=== PATIENT | female | born 1995 | race Caucasian/White ===

== ENCOUNTER 2017-07-21 16:21 | Outpatient (CLI) | payer OTHER ==
[~2017-07-21] VITALS: Ht 162.6 cm; Wt 72.6 kg
[~2017-07-21 16:21] MED LIST: ACET1TAB43 PO; DOCU100C37 PO; FERR325T18 PO; IBUP-1773 PO
[2017-07-21 16:37] VITALS: BP 116/71
[2017-07-21] MEDS ORDERED: PREN-148 PO (17:31)
[2017-07-21] MEDS ORDERED: FERR-84 PO (17:32)
--- NOTE | 2017-07-23 12:18 | Physician Query-Final Dx ---
NEVAEH CROUCH 07/23/17 1218: Clinic Account Progress/Dx Physician Query: Please give diagnosis Date of Service July 21, 2017 at 16:21 KWAME MIMS DO 07/24/17 1317: Clinic Account Progress/Dx DIAGNOSIS: Diagnosis 34 week IUP Cramping and bloating NEVAEH CROUCH July 23, 2017 12:18 KWAME MIMS DO July 24, 2017 13:17
== END 2017-07-21 17:38 | disposition home or self-care (01) ==
LOC: WSo 16:21 → LDRP 16:23 → WSo 17:38
PROVIDERS: ATTEND Obstetrics & Gynecology
DX: O99.89 Other specified diseases and conditions complicating pregnancy, childbirth and the puerperium (principal); R14.0 Abdominal distension (gaseous); Z3A.34 34 weeks gestation of pregnancy
CPT/HCPCS: 99213

== ENCOUNTER 2017-08-25 07:52 | Inpatient (IN) | payer OTHER ==
[~2017-08-25] VITALS: Ht 162.6 cm; Wt 74.0 kg
[2017-08-25] VITALS (35 sets, daily range): BP systolic 99–151; BP diastolic 57–87
[~2017-08-25 07:52] MED LIST changes: +FERR-84 PO; +PREN-148 PO
[2017-08-25] MEDS ORDERED: D5 LR IV SOLUTION 1,000 ML IV SCH (08:36)
[2017-08-25] MEDS ORDERED: OXYTOCIN/NORMAL SALINE 500 ML IV SCH ×2 (08:36→13:39)
[2017-08-25] MEDS ORDERED: MINERAL OIL CONCENTRATE 99.9% 15 ML UDC TOP PRN (08:45)
[2017-08-25] MEDS ORDERED: OXYTOCIN/NORMAL SALINE 500 ML IV ONE (09:06)
[2017-08-25] MEDS ORDERED: D5 LR IV SOLUTION 1,000 ML IV ONE (09:06)
[2017-08-25 09:41] LABS: BASOPHILS % (AUTO) 0 % (0-10); EOSINOPHILS # (AUTO) 0.1 10^3/uL (0.0-0.3); EOSINOPHILS % (AUTO) 1 % (0-10); HEMATOCRIT 32 % (35-52); HEMOGLOBIN 10.6 G/DL (11.5-16.0); LYMPHOCYTES # (AUTO) 1.6 X 10^3 (1.0-4.0); LYMPHOCYTES % (AUTO) 18 % (12-44); MEAN CORPUSCULAR HEMOGLOBIN 28 PG (25-34); MEAN CORPUSCULAR HGB CONC 33 G/DL (32-36); MEAN CORPUSCULAR VOLUME 84 FL (80-99); MONOCYTES # (AUTO) 0.9 X 10^3 (0.0-1.0); MONOCYTES % (AUTO) 11 % (0-12); NEUTROPHILS # (AUTO) 6.2 X 10^3 (1.8-7.8); NEUTROPHILS % (AUTO) 70 % (42-75); PLATELET COUNT 230 10^3/uL (130-400); RED BLOOD COUNT 3.83 10^6/uL (4.35-5.85); RED CELL DISTRIBUTION WIDTH 14.5 % (10.0-14.5); WHITE BLOOD COUNT 8.9 10^3/uL (4.3-11.0)
[2017-08-25] MEDS ORDERED: SUFENTA 0.6MCG/ML BUPIVA 0.125 100 ML ONE (10:07)
--- NOTE | 2017-08-25 10:11 | History & Physical-OB ---
OB - Chief Complaint & HPI Date/Time Date of Admission: Date of Admission: Time Seen by Provider: 10:00 Chief Complaint/History OB-Reason for Admission/Chief: Labor Hx : 2 Hx Para: 1 Expected Date of Delivery: Aug 30, 2017 Gestational Age in Weeks: 39 Gestational Age in Days: 2 Admission Nurse Assessment Rev: Yes History of Labs O neg Antibody neg RI RPR NR HBsAg NR HIV NR GC neg GBS neg Allergies and Home Medications Allergies Coded Allergies: No Known Drug Allergies (Unverified , 07/09/15) Patient Home Medication List Home Medication List Reviewed: Yes OB - History Hx of Present Care: Yes Ultrasounds: Normal mid trimester US Obstetrical Complications: None Medical Complications: None Obstetrical History Hx : 2 Hx Para: 1 Hx Total # of Abortions (Spona: 0 Delivery History Hx Blood Disorders: No Adverse Rxn to Tranfusion: No Patient Past Medical History N/A Social History/Family History Recent Infectious Disease Expo: No Alcohol Use: Denies Use Recreational Drug Use: No Immunizations Hepatitis B: Yes Tetanus Booster (TDap): Unknown OB - Admission Exam Physical Exam HEENT: NCAT Heart: Rhythm Normal Lungs: Clear Abdomen: Gravid Extremities: Normal Reflexes: Normal Cervical Dilatation: 4cm Effacement: 75% Station: -2 Membranes: Ruptured Amniotic Fluid: Clear Heart Rate: 130's Accelerations: Accelerations Present Decelerations: No Decelerations Short Term Variability: Present Trolley Worker Variability: Average (6-25) Contractions on Admission: 6-10 Minutes Apart Intensity: Mild Labs Laboratory Tests Test 08/25/17 09:20 Range/Units White Blood Count 8.9 4.3-11.0 10^3/uL Red Blood Count 3.83 L 4.35-5.85 10^6/uL Hemoglobin 10.6 L 11.5-16.0 G/DL Hematocrit 32 L 35-52 % Mean Corpuscular Volume 84 80-99 FL Mean Corpuscular Hemoglobin 28 25-34 PG Mean Corpuscular Hemoglobin Concent 33 32-36 G/DL Red Cell Distribution Width 14.5 10.0-14.5 % Platelet Count 230 130-400 10^3/uL Mean Platelet Volume 11.0 H 7.4-10.4 FL Neutrophils (%) (Auto) 70 42-75 % Lymphocytes (%) (Auto) 18 12-44 % Monocytes (%) (Auto) 11 0-12 % Eosinophils (%) (Auto) 1 0-10 % Basophils (%) (Auto) 0 0-10 % Neutrophils # (Auto) 6.2 1.8-7.8 X 10^3 Lymphocytes # (Auto) 1.6 1.0-4.0 X 10^3 Monocytes # (Auto) 0.9 0.0-1.0 X 10^3 Eosinophils # (Auto) 0.1 0.0-0.3 10^3/uL Basophils # (Auto) 0.0 0.0-0.1 10^3/uL OB - Assessment/Plan/Diagnosis Assessment Assessment: rupture of membranes Admission Dx 22 yo @ 39.2 SROM GBS neg Admission Status: Inpatient Order (span 2 midnights) Reason for Inpatient Admission: 22 yo @ 39.2 SROM GBS neg Plan Plan: Expectant Management (Pitocin augmentation to be started if no increase in contraction pattern or cervical change noted) Other Plan May have epidural at request KWAME MIMS DO Aug 25, 2017 10:11 am
[2017-08-25] MEDS ORDERED: fentaNYL INJECTION 100 MCG/2 ML AMP ONE (10:36)
[2017-08-25] MEDS ORDERED: BUPIVACAINE 0.25% 30 ML (SENSORCAINE) VIAL ONE (10:36)
[2017-08-25] MEDS ORDERED: LACTATED RINGERS 1,000 ML IV ONE ×2 (11:10)
[2017-08-25] MEDS ORDERED: NALOXONE 0.4 MG/ML 1 ML (NARCAN) VIAL IV PRN (11:15)
[2017-08-25] MEDS ORDERED: ONDANSETRON 4 MG/2 ML (SDV) Z0FRAN IV PRN (11:15)
[2017-08-25] MEDS ORDERED: EPIDURAL (SUFENTA 0.6MCG/ML BUPIVA 0.125%) 100 ML BAG EPI PRN (11:15)
--- OUTSIDE RECORDS SUMMARY | 2017-08-25 11:49 | XMS REPORT ---
Author TOSHA [facility] eClinicalWorks Address Unknown Phone Unavailable Care Team Providers Care Adobe Developer Name Role Phone TOSHA PARISH CP Unavailable Allergies No Known Allergies Problems Problem Type Condition ICD-9 Code Onset Dates Condition Status Problem General counseling for prescription of oral contraceptives V25.01 Active Assessment examination or test, unconfirmed V72.40 Active Problem examination or test, negative result V72.41 Active Medications No Known Medications Procedures Procedure Coding System Code Date VENIPUNCT, ROUTINE* CPT-4 90686 Nov 25, 2014 CHORIONIC GONADOTROPIN ASSAY CPT-4 71047 Nov 25, 2014 Results No Known Results Summary Purpose eClinicalWorks Submission
--- OUTSIDE RECORDS SUMMARY | 2017-08-25 11:49 | XMS REPORT ---
Author TOSHA Irving [facility] [place] eClinicalWorks Address Unknown Phone Unavailable Care Team Providers Care Donkey Engine Firer/Fireman Name Role Phone TOSHA PARISH CP Unavailable Allergies No Known Allergies Problems Problem Type Condition ICD-9 Code Onset Dates Condition Status Problem General counseling for prescription of oral contraceptives V25.01 Active Problem examination or test, negative result V72.41 Active Medications No Known Medications Results No Known Results Summary Purpose eClinicalWorks Submission
--- OUTSIDE RECORDS SUMMARY | 2017-08-25 11:50 | XMS REPORT ---
Author Author GIOVANNI CARVALHO eClinicalWorks Address Unknown Phone Unavailable Care Team Providers Care Head Silverman Name Role Phone GIOVANNI CARVALHO CP Unavailable Allergies, Adverse Reactions, Alerts Substance Reaction Event Type N.K.D.A. Info Not Available Non Drug Allergy Problems Problem Type Condition Code Onset Dates Condition Status Problem General counseling for prescription of oral contraceptives V25.01 Active Assessment Dental examination Z01.20 Active Problem examination or test, negative result V72.41 Active Medications Medication Code System Code Instructions Start Date End Date Status Dosage [facility] [id number] not defined Procedures Procedure Coding System Code Date INTRAORL-PERIAPICAL 1 FILM 32981 CPT-4 D0220 Dec 08, 2015 BITEWING - SINGLE FILM CPT-4 D0270 Dec 08, 2015 INTRAORL-PERIAPICAL 1 FILM 38701 CPT-4 D0220 Dec 08, 2015 Vital Signs Date/Time: Dec 08, 2015 Blood Pressure Diastolic 72 mmHg Blood Pressure Systolic 129 mmHg Height 64 in Results No Known Results Summary Purpose eClinicalWorks Submission
--- OUTSIDE RECORDS SUMMARY | 2017-08-25 11:50 | XMS REPORT | Continuity of Care Document ---
Author Author Formerly [facility] Address Unknown Phone Unavailable Allergies Active Description Code Type Severity Reaction Onset Reported/Identified Relationship to Patient Clinical Status Yes No Known Drug Allergies [id number] Drug Allergy Unknown N/A 07/09/2015 Medications There is no data. 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25 MAJOR DEPRESSIVE AFFECTIVE DISORDER SINGLE EPISODE IN PARTIAL OR UNSPECIFIED REMISSION 07/12/2009 TOSHA PARISH DO V70.3 SPORTS/SCHOOL EXAM 07/12/2009 TOSHA PARISH DO V70.3 SPORTS/SCHOOL EXAM 07/12/2009 DEBORAH OROURKE APRN A V70.3 SPORTS/SCHOOL EXAM 12/01/2009 TOSHA PARISH DO 373.11 HORDEOLUM EXTERNUM 12/01/2009 TOSHA PARISH DO 373.11 HORDEOLUM EXTERNUM 12/01/2009 DEBORAH OROURKE APRN A 373.11 HORDEOLUM EXTERNUM 02/18/2010 PARISH DO, TOSHA K 110.4 TINEA PEDIS 02/18/2010 МАРИНА GARAY, TOSHA K 110.4 TINEA PEDIS 02/18/2010 [employer] ANCHORDEBORAH Pagan A 110.4 TINEA PEDIS 01/16/2011 TOSHA PARISH DO K 110.5 TINEA CORPORIS 01/16/2011 TOSHA PARISH DO K 110.5 TINEA CORPORIS 01/16/2011 DEBORAH OROURKE APRN A 110.5 TINEA CORPORIS 08/22/2013 [employer] ANCHORDEBORAH Pagan V72.41 TEST NEGATIVE RESULT 08/28/2013 TOSHA PARISH DO K V25.01 CONTRACEPTION - ORAL CONTRACEPTION 08/28/2013 DEBORAH OROURKE APRN V25.01 CONTRACEPTION - ORAL CONTRACEPTION 07/11/2015 TONYA ALEX, ALEKSANDER Pagan Ot D62 ACUTE POSTHEMORRHAGIC ANEMIA 07/11/2015 TONYA ALEX, ALEKSANDER N Ot O42.02 FULL-TERM DEBRA ROM, ONSET LABOR WITHIN 2 07/11/2015 TONYA ALEX, ALEKSANDER N Ot O71.82 OTHER SPECIFIED TRAUMA TO PERINEUM AND V 07/11/2015 TONYA ALEX, ALEKSANDER N Ot O90.81 ANEMIA OF THE PUERPERIUM 07/11/2015 TONYA ALEX, ALEKSANDER N Ot Z37.0 SINGLE LIVE 07/11/2015 TONYA ALEX, ALEKSANDER Pagan Ot Z3A.38 38 WEEKS GESTATION OF 07/21/2017 Ot Z34.82 ENCOUNTER FOR SUPRVSN OF NORMAL PREGNANC 07/21/2017 Ot Z3A.21 21 WEEKS GESTATION OF 07/21/2017 KWAME MIMS DO Ot O99.89 OTH DISEASES AND CONDITIONS COMPL PREG/C 07/21/2017 OLEGARIOECH KWAME GARAY S Ot R14.0 ABDOMINAL DISTENSION (GASEOUS) 07/21/2017 KWAME MIMS DO Ot Z3A.34 34 WEEKS GESTATION OF 07/25/2017 KWAME MIMS DO Ot O99.89 OTH DISEASES AND CONDITIONS COMPL PREG/C 07/25/2017 OLEGARIOECH KWAME GARAY S Ot R14.0 ABDOMINAL DISTENSION (GASEOUS) 07/25/2017 KWAME MIMS DO Ot Z3A.34 34 WEEKS GESTATION OF Procedures Code [place] [address] ROUTINE VENIPUNCTURE 08/22/2013 66937 TEST, SERUM (RML) 08/22/2013 [id number] 07/09/2015 [id number] 07/10/2015 [id number] 07/10/2015 Results There is no data. Encounters ACCT No. Visit Date/Time Discharge Status Pt. Type Provider Facility Loc./Unit Complaint [id number] 11/20/2013 15:24:00 11/20/2013 23:59:59 CLS Outpatient DEBORAH OROURKE APRN [id number] 08/28/2013 14:57:00 08/28/2013 23:59:59 CLS Outpatient TOSHA PARISH DO [id number] 08/22/2013 08:28:00 08/22/2013 23:59:59 CLS Outpatient TOSHA PARISH DO [id number] 07/21/2017 16:21:00 07/21/2017 17:38:00 DIS Outpatient KWAME MIMS DO [facility] WSo PRESSURE,CRAMPING [id number] 07/09/2015 21:11:00 07/11/2015 15:15:00 DIS Outpatient ALEKSANDER CASTANEDA MD [facility] LDRP [id number] 04/19/2017 11:58:00 Document Registration
--- NOTE | 2017-08-25 13:39 | OB Labor & Delivery Record ---
L&D History Date of Service Date of Service: Aug 25, 2017 History Expected Date of Delivery: Aug 30, 2017 Gestational Age in Weeks: 39 Hx : 2 Hx Para: 1 Complications Events: Routine care Operative Indications (Cesarea: N/A-Vaginal Delivery Intrapartal Events: None L&D Stage1 Stage One Onset of Labor - Date: Aug 25, 2017 Monitors and Tracing Monitor Mode: External Heart Rate: 140 Monitor Decelerations: Early Station: -2 Short Term Variability: Present Presentation: Vertex Vital Signs VS - Last 72 Hours, by Label 08/25/17 08/25/17 08/25/17 09:30 09:45 10:00 Temp 97.0 98.3 Pulse 64 59 62 Resp 16 B/P (MAP) 115/66 (82) 125/79 (94) 119/69 (86) O2 Delivery Room Air Room Air Room Air Rupture of Membranes Spontaneous Ruture of Membrane: Yes Amniotic Membrane Rupture Time: 0700 Amniotic Membrane Fluid Desc.: Clear Amniotic Fluid Membrane Tests: Nitrazine Positive Vaginal Bleeding Description: Normal Show Induction/Anesthesia Epidural Cath Placement - Time: 1043 Progress/Notes Pitocin augmentation started per protocol(Fenech), at 0930 this AM L&D Stage2 Stage Two Stage II Date: Aug 25, 2017 Monitors and Tracing Monitor Mode: External Heart Rate: 140 Monitor Decelerations: Early Laboratory Scientist Variability: Average (6-10) Short Term Variability: Present Position: Right Occiput Anterior Presentation: Vertex Cord Descript/Complications Cord Vessel Description: 3 Vessels Delivery Type Infant Delivery Method: Spontaneous Vaginal Anterior Shoulder: Right Episiotomy/Perineal Laceration Episiotomy Description: Midline, Vaginal Extension/lac, 1st degree Degree (describe repair) 1st degree vaginal to peroneal laceration repaired using 3-0 rapide vicryl suture Condition of Infant Delivery 1 minute Comment: 8 5 minute Comment: 9 Notes Live male weight 8lbs 14 oz Condition of Condition of Infant: Living Exam: No Observed Abnormalities Resuscitation Resuscitation: N/A - Spontaneous Resp L&D Stage3 Stage Three Stage III Date: Aug 25, 2017 Pictocin Pitocin Administration mu/min: 30 Pitocin Administration Comment: 30 mu wide open at delivery of placenta Placenta Delivery Placenta Delivery: Spontaneous Delivery Summary Summary Estimated blood loss (mL): 350 Attending at delivery: Kwame Mims DO Condition of Delivery Examined: Cervix Examined, Uterus Explored Post Hemorrhage: Yes Condition of Mother stable Condition of (s) stable KWAME MIMS DO Aug 25, 2017 1:39 pm
[2017-08-25] MEDS ORDERED: LIDOCAINE/EPI 2% 1:200,00 (XYLOCAINE) 10 ML VIAL ONE (13:41)
[2017-08-25] MEDS ORDERED: DIBUCAINE (NUPERCAINAL) 1% OINT 30 GM TOP PRN (13:45)
[2017-08-25] MEDS ORDERED: TETANUS,DIPTH,PERTUSS P/F (BOOSTRIX) 0.5 ML VIAL IM ONE (13:45)
[2017-08-25] MEDS ORDERED: HYDROcodone/APAP 5 MG/325 MG (LORTAB) TAB PO PRN (13:45)
[2017-08-25] MEDS ORDERED: MEASLES,MUMPS,RUBELLA 1 EA INJ SQ ONE (13:45)
[2017-08-25] MEDS ORDERED: CATHETER FLUSH 10 ML SYR IV SCH ×2 (14:00)
--- NOTE | 2017-08-25 14:13 | Discharge Inst-Women's Service ---
Discharge Inst-Women's Serv Depart Medication/Instructions New, Converted or Re-Newed RX: RX on Chart Consults/Follow Up Additional Follow Up: Yes Orders/Referrals Dr. Mims in 6 weeks Activity Driving Instructions: No Driving for 1 Week NO SMOKING: NO SMOKING Nothing Inside Vagina: No Douching, No Zephyr, No Tampons Diet Discharge Diet: No Restrictions Symptoms to Report to : Bleeding Excessive, Pain Increased, Fever Over 101 Degrees F, Vaginal Bleeding Increase, Questions/Concerns For Any Problems or Questions: Contact Your Physician Skin/Wound Care Bathing Instructions: Shower ( or sitz baths x 2 weeks) KWAME IMMS DO Aug 25, 2017 2:13 pm
[2017-08-25] MEDS ORDERED: Benzocaine/Menthol TP (14:15)
[2017-08-25] MEDS ORDERED: IBUP-844 PO (14:15)
[2017-08-25] MEDS ORDERED: DIBU30OI TOP (14:15)
[2017-08-25] MEDS ORDERED: ACHD5005 PO (14:15)
[2017-08-25] MEDS ORDERED: DOCU100C37 PO (14:15)
[2017-08-25] MEDS: BENZOCAINE/MENTHOL (DERMOPLAST) 56 ML CAN TP PRN (14:38)
[2017-08-25] MEDS: WITCH HAZEL(TUCKS) 40 EA JAR TOP PRN (14:38)
[2017-08-25] MEDS: IBUPROFEN 600 MG (MOTRIN) TAB PO SCH ×2 (15:16→20:40)
[2017-08-25] MEDS: DOCUSATE SODIUM 100 MG (COLACE) CAP PO SCH (20:40)
[2017-08-26 00:50] VITALS: BP 101/53
[2017-08-26] MEDS: IBUPROFEN 600 MG (MOTRIN) TAB PO SCH ×3 (02:31→15:55)
[2017-08-26 04:55] VITALS: BP 115/69
[2017-08-26 06:50] LABS: BASOPHILS % (AUTO) 0 % (0-10); EOSINOPHILS # (AUTO) 0.1 10^3/uL (0.0-0.3); EOSINOPHILS % (AUTO) 0 % (0-10); HEMATOCRIT 32 % (35-52); HEMOGLOBIN 10.2 G/DL (11.5-16.0); LYMPHOCYTES # (AUTO) 1.6 X 10^3 (1.0-4.0); LYMPHOCYTES % (AUTO) 11 % (12-44); MEAN CORPUSCULAR HEMOGLOBIN 27 PG (25-34); MEAN CORPUSCULAR HGB CONC 32 G/DL (32-36); MEAN CORPUSCULAR VOLUME 84 FL (80-99); MEAN PLATELET VOLUME 10.8 FL (7.4-10.4); MONOCYTES # (AUTO) 1.1 X 10^3 (0.0-1.0); MONOCYTES % (AUTO) 8 % (0-12); NEUTROPHILS # (AUTO) 11.3 X 10^3 (1.8-7.8); NEUTROPHILS % (AUTO) 80 % (42-75); PLATELET COUNT 217 10^3/uL (130-400); RED BLOOD COUNT 3.82 10^6/uL (4.35-5.85); RED CELL DISTRIBUTION WIDTH 14.6 % (10.0-14.5)
[2017-08-26] MEDS ORDERED: PRENATAL VITAMIN 1 EA TAB PO SCH (07:00)
[2017-08-26] MEDS ORDERED: TETANUS,DIPTH,PERTUSS P/F (BOOSTRIX) 0.5 ML VIAL IM ONE (08:17)
[2017-08-26 08:22] VITALS: BP 115/66
[2017-08-26] MEDS: DOCUSATE SODIUM 100 MG (COLACE) CAP PO SCH (08:24)
[2017-08-26] MEDS: WITCH HAZEL(TUCKS) 40 EA JAR TOP PRN (08:27)
[2017-08-26] MEDS: BENZOCAINE/MENTHOL (DERMOPLAST) 56 ML CAN TP PRN (08:27)
[2017-08-26] MEDS ORDERED: FERROUS SULF 325 MG (IRON) TAB PO SCH (09:00)
--- NOTE | 2017-08-26 11:11 | Postpartum Progress Note ---
Note Note Day # 1 Subjective: Patient is without complaints. Ambulating, voiding. Tolerating a regular diet without nausea or vomiting. Normal lochia. Pain is well controlled with oral pain medications. Objective: Vital Sign - Last 24 Hours 08/25/17 08/25/17 08/25/17 08/25/17 11:15 11:20 11:25 11:30 Pulse 62 55 57 61 B/P (MAP) 130/87 (101) 109/58 (75) 112/67 (82) 119/79 (92) Pulse Ox 98 99 98 98 O2 Delivery Room Air Room Air Room Air Room Air 08/25/17 08/25/17 08/25/17 08/25/17 11:45 12:00 12:15 12:30 Temp 98.2 Pulse 64 60 58 63 Resp 16 B/P (MAP) 118/79 (92) 99/58 (72) 125/66 (85) 120/59 (79) Pulse Ox 98 O2 Delivery Room Air Room Air Room Air Room Air 08/25/17 08/25/17 08/25/17 08/25/17 12:45 13:00 13:15 13:30 Temp 98.2 Pulse 57 56 60 55 B/P (MAP) 110/75 (87) 118/65 (82) 123/64 (83) 129/76 (93) O2 Delivery Room Air Room Air Room Air Room Air 08/25/17 08/25/17 08/25/17 08/25/17 13:45 14:00 14:12 14:26 Temp 98.4 Pulse 60 68 65 67 Resp 16 B/P (MAP) 127/66 (86) 101/57 (72) 126/65 (85) 129/69 (89) O2 Delivery Room Air Room Air Room Air Room Air 08/25/17 08/25/17 08/25/17 08/25/17 14:41 14:56 15:11 15:26 Pulse 56 57 62 74 B/P (MAP) 128/72 (90) 116/72 (87) 121/72 (88) 118/68 (85) O2 Delivery Room Air Room Air Room Air Room Air 08/25/17 08/25/17 08/25/17 08/26/17 15:41 15:56 20:40 00:50 Temp 98.3 98.5 Pulse 58 58 64 64 Resp 18 18 B/P (MAP) 114/62 (79) 114/63 (80) 133/73 (93) 101/53 (69) Pulse Ox 98 97 O2 Delivery Room Air Room Air Room Air Room Air 08/26/17 04:55 Temp 98.6 Pulse 57 Resp 18 B/P (MAP) 115/69 (84) Pulse Ox 97 O2 Delivery Room Air Intake and Output 08/25/17 08/25/17 08/26/17 15:00 23:00 07:00 Intake Total 2200 ml 500 ml Balance 2200 ml 500 ml Laboratory Tests Test 08/26/17 06:40 Range/Units White Blood Count 14.0 H 4.3-11.0 10^3/uL Red Blood Count 3.82 L 4.35-5.85 10^6/uL Hemoglobin 10.2 L 11.5-16.0 G/DL Hematocrit 32 L 35-52 % Mean Corpuscular Volume 84 80-99 FL Mean Corpuscular Hemoglobin 27 25-34 PG Mean Corpuscular Hemoglobin Concent 32 32-36 G/DL Red Cell Distribution Width 14.6 H 10.0-14.5 % Platelet Count 217 130-400 10^3/uL Mean Platelet Volume 10.8 H 7.4-10.4 FL Neutrophils (%) (Auto) 80 H 42-75 % Lymphocytes (%) (Auto) 11 L 12-44 % Monocytes (%) (Auto) 8 0-12 % Eosinophils (%) (Auto) 0 0-10 % Basophils (%) (Auto) 0 0-10 % Neutrophils # (Auto) 11.3 H 1.8-7.8 X 10^3 Lymphocytes # (Auto) 1.6 1.0-4.0 X 10^3 Monocytes # (Auto) 1.1 H 0.0-1.0 X 10^3 Eosinophils # (Auto) 0.1 0.0-0.3 10^3/uL Basophils # (Auto) 0.0 0.0-0.1 10^3/uL Physical Exam: General - Alert and oriented, no apparent distress Abdomen - Soft, appropriately tender to palpation, non-distended, fundus firm at umbilicus Extremities - no edema, negative Brendan's bilaterally Assessment: PPD 1 NVD Plan: Routine care. Encourage breast feeding. Encourage ambulation. Ferrous sulfate supplementation. Plan for today Vitals - Labs Vital Signs - I&O Vital Signs Date Time Temp Pulse Resp B/P (MAP) Pulse Ox O2 Delivery O2 Flow Rate FiO2 08/26/17 04:55 98.6 57 18 115/69 (84) 97 Room Air 08/26/17 00:50 98.5 64 18 101/53 (69) 97 Room Air 08/25/17 20:40 98.3 64 18 133/73 (93) 98 Room Air 08/25/17 15:56 58 114/63 (80) Room Air 08/25/17 15:41 58 114/62 (79) Room Air 08/25/17 15:26 74 118/68 (85) Room Air 08/25/17 15:11 62 121/72 (88) Room Air 08/25/17 14:56 57 116/72 (87) Room Air 08/25/17 14:41 56 128/72 (90) Room Air 08/25/17 14:26 67 16 129/69 (89) Room Air 08/25/17 14:12 98.4 65 126/65 (85) Room Air 08/25/17 14:00 68 101/57 (72) Room Air 08/25/17 13:45 60 127/66 (86) Room Air 08/25/17 13:30 55 129/76 (93) Room Air 08/25/17 13:15 98.2 60 123/64 (83) Room Air 08/25/17 13:00 56 118/65 (82) Room Air 08/25/17 12:45 57 110/75 (87) Room Air 08/25/17 12:30 98.2 63 120/59 (79) Room Air 08/25/17 12:15 58 125/66 (85) Room Air 08/25/17 12:00 60 16 99/58 (72) Room Air 08/25/17 11:45 64 118/79 (92) 98 Room Air 08/25/17 11:30 61 119/79 (92) 98 Room Air 08/25/17 11:25 57 112/67 (82) 98 Room Air 08/25/17 11:20 55 109/58 (75) 99 Room Air 08/25/17 11:15 62 130/87 (101) 98 Room Air I & O 08/26/17 07:00 Intake Total 2700 ml Balance 2700 ml Labs Laboratory Tests 08/26/17 06:40: White Blood Count 14.0H, Red Blood Count 3.82L, Hemoglobin 10.2L, Hematocrit 32L , Mean Corpuscular Volume 84, Mean Corpuscular Hemoglobin 27, Mean Corpuscular Hemoglobin Concent 32, Red Cell Distribution Width 14.6H, Platelet Count 217, Mean Platelet Volume 10.8H, Neutrophils (%) (Auto) 80H, Lymphocytes (%) (Auto) 11L, Monocytes (%) (Auto) 8, Eosinophils (%) (Auto) 0, Basophils (%) (Auto) 0, Neutrophils # (Auto) 11.3H, Lymphocytes # (Auto) 1.6, Monocytes # (Auto) 1.1H, Eosinophils # (Auto) 0.1, Basophils # (Auto) 0.0 KWAME MIMS DO Aug 26, 2017 11:11 am
[2017-08-26 12:58] VITALS: BP 116/69
--- NOTE | 2017-08-26 13:33 | Anesthesia-Regional Post-Op ---
Regional Patient Condition Mental Status: Alert, Oriented x3 Circulation: Same as Pre-Op Headache: Absent Sensation: Full Recovery Motor Block: Absent Post Op Complications Complications None Follow Up Care/Instructions Patient Instructions None needed. Anesthesia/Patient Condition Patient is doing well, no complaints, stable vital signs, no apparent adverse anesthesia problems. No complications reported per nursing. FLORES ALAMO CRNA Aug 26, 2017 13:33
[2017-08-26 15:55] VITALS: BP 112/63
--- NOTE | 2017-08-28 12:42 | Physician Query-Final Dx ---
PAWAN HAGER 08/28/17 1242: Final Diagnosis Give Final Diagnosis Please give Final Diagnosis KWAME MIMS DO 08/28/17 1733: Final Diagnosis Give Final Diagnosis PPD 1 NVD PAWAN HAGER Aug 28, 2017 12:42 KWAME MIMS DO Aug 28, 2017 17:33
== END 2017-08-26 17:05 | disposition home or self-care (01) | DRG 775 ==
LOC: WSo 07:52 → LDRP 07:56 → WSo 08:25 → LDRP 08:25
PROVIDERS: ADMIT Obstetrics & Gynecology; ATTEND Obstetrics & Gynecology
PROC: 10E0XZZ Delivery of Products of Conception, External Approach (ICD-10-PCS; principal; 2017-08-25)
PROC: 0HQ9XZZ Repair Perineum Skin, External Approach (ICD-10-PCS; 2017-08-25)
PROC: 0W8NXZZ Division of Female Perineum, External Approach (ICD-10-PCS; 2017-08-25)
DX: O70.0 First degree perineal laceration during delivery (principal); Z37.0 Single live birth; Z3A.39 39 weeks gestation of pregnancy; Z23 Encounter for immunization
CPT/HCPCS: 36415; 85025; 86850; 86900; 86901; 90715; 99212

== ENCOUNTER 2019-06-10 10:39 | Emergency (ER) | payer BC, OTHER ==
[~2019-06-10] VITALS: Ht 162 cm; Wt 62.0 kg
[~2019-06-10 10:39] MED LIST changes: +ACHD5005 PO; +Benzocaine/Menthol TP; +DIBU30OI TOP; +IBUP-844 PO
[2019-06-10] MEDS ORDERED: KETOROLAC 60 MG/2 ML VIAL IM ONE (11:00)
--- NOTE | 2019-06-10 11:06 | ED Abdominal Pain ---
General Chief Complaint: Abdominal/GI Problems Stated Complaint: LOWER LEFT ABDOMINAL PAIN Source of Information: Patient Exam Limitations: No Limitations History of Present Illness Date Seen by Provider: Jun 10, 2019 Time Seen by Provider: 11:01 Initial Comments To ER with reports of left lower quadrant abdominal pain intermittently about every 2 weeks for the past 3 months. She thought it was just an ovarian cyst, her mother told her today there was a family history of ovarian cancer so she decided to come to the emergency room. She doesn't want anything for pain. Timing/Duration: 1-2 Days Severity/Quality: Moderate Location: LLQ Radiation: No Radiation Activities at Onset: None Associated Symptoms: Nausea/Vomiting Allergies and Home Medications Allergies Coded Allergies: No Known Drug Allergies (Unverified , 07/09/15) Home Medications No Active Prescriptions or Reported Meds Patient Home Medication List Home Medication List Reviewed: Yes Review of Systems Review of Systems Constitutional: see HPI EENTM: No Symptoms Reported Respiratory: No Symptoms Reported Cardiovascular: No Symptoms Reported Gastrointestinal: See HPI, Abdominal Pain Genitourinary: No Symptoms Reported Musculoskeletal: no symptoms reported Skin: no symptoms reported Psychiatric/Neurological: No Symptoms Reported Endocrine: No Symptoms Reported Hematologic/Lymphatic: No Symptoms Reported Past Pahmdsn-Zavstp-Npokbh Hx Patient Social History Recent Hopitalizations: No Immunizations Up To Date Tetanus Booster (TDap): Unknown Seasonal Allergies Seasonal Allergies: No Past Medical History Respiratory: No Cardiac: No Neurological: No Reproductive Disorders: No Genitourinary: No Gastrointestinal: No Musculoskeletal: No Endocrine: No HEENT: No Cancer: No Psychosocial: No Integumentary: No Blood Disorders: No Adverse Reaction/Blood Tranf: No Family Medical History Congenital heart defect (Brother) Diabetes mellitus (Maternal grandmother) FH: breast cancer (Maternal grandmother) FH: ovarian cancer (Maternal great grandmother, aunt) FH: skin cancer Hypertension (Maternal grandmother) Myocardial infarction (Maternal grandfather) Physical Exam Vital Signs Vital Signs - First Documented 06/10/19 10:59 Temp 37.0 Pulse 73 Resp 18 B/P (MAP) 130/78 (95) Pulse Ox 100 Capillary Refill : Height/Weight/BMI Height: 5'4.00" Weight: 163lbs. 4.0oz. 74.081478ma; 28.0 BMI Method: General Appearance: WD/WN, no apparent distress HEENT: PERRL/EOMI, normal ENT inspection Respiratory: no respiratory distress, no accessory muscle use Cardiovascular: regular rate, rhythm, no murmur Gastrointestinal: normal bowel sounds, soft, tenderness Extremities: normal range of motion, non-tender Neurologic/Psychiatric: alert, normal mood/affect, oriented x 3 Skin: normal color, warm/dry Progress/Results/Core Measures Results/Orders Lab Results Laboratory Tests Test 06/10/19 11:00 06/10/19 11:10 Range/Units Urine Color YELLOW Urine Clarity CLEAR Urine pH 5.5 5-9 Urine Specific [place] 1.025 H 1.016-1.022 Urine Protein NEGATIVE NEGATIVE Urine Glucose (UA) NEGATIVE NEGATIVE Urine Ketones NEGATIVE NEGATIVE Urine Nitrite NEGATIVE NEGATIVE Urine Bilirubin NEGATIVE NEGATIVE Urine Urobilinogen 0.2 < = 1.0 MG/DL Urine Leukocyte Esterase NEGATIVE NEGATIVE Urine RBC (Auto) TRACE-I NEGATIVE Urine RBC NONE /HPF Urine WBC NONE /HPF Urine Squamous Epithelial Cells 2-5 /HPF Urine Crystals NONE /LPF Urine Bacteria TRACE /HPF Urine Casts NONE /LPF Urine Mucus NEGATIVE /LPF Urine Culture Indicated NO White Blood Count 6.3 4.3-11.0 10^3/uL Red Blood Count 4.95 4.35-5.85 10^6/uL Hemoglobin 14.5 11.5-16.0 G/DL Hematocrit 44 35-52 % Mean Corpuscular Volume 89 80-99 FL Mean Corpuscular Hemoglobin 29 25-34 PG Mean Corpuscular Hemoglobin Concent 33 32-36 G/DL Red Cell Distribution Width 12.8 10.0-14.5 % Platelet Count 221 130-400 10^3/uL Mean Platelet Volume 10.9 H 7.4-10.4 FL Neutrophils (%) (Auto) 64 42-75 % Lymphocytes (%) (Auto) 26 12-44 % Monocytes (%) (Auto) 7 0-12 % Eosinophils (%) (Auto) 2 0-10 % Basophils (%) (Auto) 0 0-10 % Neutrophils # (Auto) 4.0 1.8-7.8 X 10^3 Lymphocytes # (Auto) 1.7 1.0-4.0 X 10^3 Monocytes # (Auto) 0.4 0.0-1.0 X 10^3 Eosinophils # (Auto) 0.2 0.0-0.3 10^3/uL Basophils # (Auto) 0.0 0.0-0.1 10^3/uL My Orders Orders - STARR BEARD APRN Urine Bedside (06/10/19 10:49) Us Non Ob Pelvis Comp/Transvag (06/10/19 10:59) Ketorolac Injection (Toradol Injection) (06/10/19 11:00) Cbc With Automated Diff (06/10/19 10:59) Ketorolac Injection (Toradol Injection) (06/10/19 11:15) Vital Signs/I&O 06/10/19 10:59 Temp 37.0 Pulse 73 Resp 18 B/P (MAP) 130/78 (95) Pulse Ox 100 Departure Impression Primary Impression: Hemorrhagic cyst of left ovary Disposition: HOME, SELF-CARE Condition: Stable Departure-Patient Inst. Decision time for Depature: 12:51 Referrals: NO,LOCAL PHYSICIAN (PCP) Primary Care Physician KWAME MIMS DENNIS G MD SHAW, ANGELA C DO Patient Instructions: Ovarian Cysts Add. Discharge Instructions: 1. Follow-up with the special education tutor listed. The meantime take NSAIDs Y ibuprofen 800 mg every 8 hours or naproxen 500 mg twice a day for 3 or 4 days until the pain subsides. Return to ER for any concerns. All discharge instructions reviewed with patient and/or family. Voiced understanding. Scripts No Active Prescriptions or Reported Meds STARR BEARD APRN Jun 10, 2019 11:06
[2019-06-10 11:10] LABS: BILIRUBIN,URINE NEGATIVE (NEGATIVE); CLARITY,URINE CLEAR; COLOR,URINE YELLOW; GLUCOSE, URINE (UA) NEGATIVE (NEGATIVE); KETONES,URINE NEGATIVE (NEGATIVE); LEUKOCYTE ESTERASE ,URINE NEGATIVE (NEGATIVE); NITRITE,URINE NEGATIVE (NEGATIVE); PH,URINE 5.5 (5-9); PROTEIN,URINE NEGATIVE (NEGATIVE)
[2019-06-10] MEDS ORDERED: KETOROLAC 60 MG/2 ML VIAL ONE (11:15)
[2019-06-10 11:26] LABS: BASOPHILS % (AUTO) 0 % (0-10); EOSINOPHILS # (AUTO) 0.2 10^3/uL (0.0-0.3); EOSINOPHILS % (AUTO) 2 % (0-10); HEMATOCRIT 44 % (35-52); HEMOGLOBIN 14.5 G/DL (11.5-16.0); LYMPHOCYTES # (AUTO) 1.7 X 10^3 (1.0-4.0); LYMPHOCYTES % (AUTO) 26 % (12-44); MEAN CORPUSCULAR HEMOGLOBIN 29 PG (25-34); MEAN CORPUSCULAR HGB CONC 33 G/DL (32-36); MEAN CORPUSCULAR VOLUME 89 FL (80-99); MEAN PLATELET VOLUME 10.9 FL (7.4-10.4); MONOCYTES # (AUTO) 0.4 X 10^3 (0.0-1.0); MONOCYTES % (AUTO) 7 % (0-12); NEUTROPHILS % (AUTO) 64 % (42-75); PLATELET COUNT 221 10^3/uL (130-400); RED CELL DISTRIBUTION WIDTH 12.8 % (10.0-14.5); WHITE BLOOD COUNT 6.3 10^3/uL (4.3-11.0)
[2019-06-10 11:35] LABS: BACTERIA,URINE TRACE /HPF
--- NOTE | 2019-06-10 12:47 | Diagnostic Imaging Report ---
PROCEDURE: US Non-ob pelvis comp/trans. TECHNIQUE: Multiple realtime grayscale images were obtained of the pelvis in various projections endovaginally. Transabdominal imaging was also performed. INDICATION: Left-sided pelvic pain for 3 months. The uterus is anteverted measuring 9.1 x 5.1 x 6.2 cm. Endometrium is 10 mm in thickness. No myometrial mass is identified. There is a small cervical nabothian cyst. The right ovary measures 3.0 x 2.4 x 3.0 cm and the left ovary measures 4.1 x 1.9 x 3.1 cm. The ovaries contain small follicles. There is a slightly complex cyst in the left ovary measuring 1.7 x 0.7 x 0.6 cm, likely hemorrhagic cyst. No free fluid is seen. IMPRESSION: Probable hemorrhagic left ovarian cyst, 1.7 cm in size. The study is otherwise unremarkable. Dictated by: Dictated on workstation # [id number]
[2019-06-10 13:02] VITALS: BP 130/78
== END 2019-06-10 13:00 | disposition home or self-care (01) ==
LOC: EDUNIT# 10:39 → ER 10:41
DX: N83.202 Unspecified ovarian cyst, left side (principal)
CPT/HCPCS: 36415; 76830; 76856; 81000; 84703; 85025

== ENCOUNTER → 2020-10-21 | Outpatient (CLI) | payer OTHER ==
--- NOTE | 2020-10-21 15:54 | Diagnostic Imaging Report ---
PROCEDURE: Pelvic comp/transvaginal sonogram. TECHNIQUE: Complete transabdominal and transvaginal pelvic ultrasound was performed. In addition, limited pelvic Doppler was performed. INDICATION: Dysfunctional uterine bleeding and dyspareunia. Uterus is anteverted measuring 9.3 x 5.3 x 7.1 cm. Endometrium is 12 mm in thickness. No myometrial mass is detected. Right ovary measures 3.4 x 2.2 x 2.8 cm and left ovary measures 3.7 x 2.8 x 2.8 cm. There is blood flow to both ovaries. A left ovary does contain a simple appearing cyst measuring 1.9 x 2.8 x 1.5 cm. No free fluid is detected. IMPRESSION: Left ovarian cyst. The study is otherwise unremarkable. Dictated by: Dictated on workstation # [id number]
== END ==
LOC: RAD 13:49
PROVIDERS: ATTEND Obstetrics & Gynecology
DX: N83.202 Unspecified ovarian cyst, left side (principal)
CPT/HCPCS: 76830; 76856

== ENCOUNTER → 2020-12-24 | Outpatient (CLI) | payer SELFPAY | LOC: CARD 12-22 13:30 | PROVIDERS: ATTEND Internal Medicine Cardiovascular Disease | DX: R07.89 Other chest pain (principal) | CPT/HCPCS: 93306 ==

== ENCOUNTER → 2021-06-09 | Outpatient (CLI) | payer BC ==
--- NOTE | 2021-06-09 14:21 | Diagnostic Imaging Report ---
EXAMINATION: Chest 2 view HISTORY: COUGH GREATER THAN 3 WEEKS COMPARISON: None available. FINDINGS: Heart size and pulmonary vasculature are normal. The lungs are clear without consolidation, pleural effusion, or pneumothorax. The osseous structures are intact. IMPRESSION: 1. No acute radiographic abnormality in the chest. Dictated by: Dictated on workstation # [id number]
== END ==
LOC: RAD 13:38
PROVIDERS: ATTEND Nurse Practitioner Primary Care
DX: R05.3 Chronic cough (principal)
CPT/HCPCS: 71046